=== PATIENT | female | born 1965 | race American Indian/Alaskan Native ===

== ENCOUNTER 2021-10-17 12:39 | Emergency (ER) | payer SELFPAY ==
[2021-10-17] MEDS ORDERED: hydrALAZINE 25 MG TAB PO ONE (21:17)
--- NOTE | 2021-10-17 21:59 | Emergency Department Report ---
ED General Adult HPI - General Chief complaint: High BP Stated complaint: HEADACHE /DIZZINESS/ARM PAIN Time Seen by Provider: 10/17/21 21:48 Source: patient Mode of arrival: Ambulatory Limitations: No Limitations - History of Present Illness Initial comments: Patient 56-year-old female with history of hypertension, diabetes, hyperlipidemia, obesity, arthralgia, diabetic neuropathy. Who presents for headache dizziness and arm pain for 3 days. Patient states been out of BP medications for the past 2 weeks. Patient advises symptoms are exacerbated by activity and movement. Symptoms are relieved by nothing tried. No fevers no chills no productive cough no nausea or vomiting no diaphoresis. - Related Data Previous Rx's Medication Instructions Recorded Last Taken Type Empagliflozin [Jardiance] 10 mg PO DAILY #30 tab 10/18/21 Unknown Rx Etodolac 400 mg PO DAILY #30 tab 10/18/21 Unknown Rx Gabapentin 300 mg PO BID #30 cap 10/18/21 Unknown Rx Glimepiride [Amaryl] 2 mg PO DAILY #30 tab 10/18/21 Unknown Rx Losartan [Cozaar] 50 mg PO QDAY #30 tablet 10/18/21 Unknown Rx Metoprolol [Lopressor TAB] 25 mg PO BID #60 tablet 10/18/21 Unknown Rx Simvastatin 10 mg PO DAILY #30 tab 10/18/21 Unknown Rx hydroCHLOROthiazide [Hctz] 12.5 mg PO DAILY #30 cap 10/18/21 Unknown Rx methocarbamoL [Methocarbamol] 500 mg PO BID PRN #30 tab 10/18/21 Unknown Rx Allergies Allergy/AdvReac Type Severity Reaction Status Date / Time No Known Allergies Allergy Unverified 10/17/21 12:48 ED Review of Systems ROS: Stated complaint: HEADACHE /DIZZINESS/ARM PAIN Other details as noted in HPI Constitutional: denies: chills, fever Eyes: denies: eye pain, eye discharge, vision change ENT: denies: ear pain, throat pain Respiratory: denies: cough, shortness of breath, wheezing Cardiovascular: denies: chest pain, palpitations Endocrine: no symptoms reported Gastrointestinal: denies: abdominal pain, nausea, vomiting, diarrhea Genitourinary: denies: urgency, dysuria, discharge Musculoskeletal: other (Left arm pain). denies: back pain, joint swelling, arthralgia Skin: denies: rash, lesions Neurological: headache, vertigo Psychiatric: denies: anxiety, depression Hematological/Lymphatic: as per HPI ED Past Medical Hx - Medications Home Medications: Home Medications Medication Instructions Recorded Confirmed Last Taken Type Empagliflozin [Jardiance] 10 mg PO DAILY #30 tab 10/18/21 Unknown Rx Etodolac 400 mg PO DAILY #30 tab 10/18/21 Unknown Rx Gabapentin 300 mg PO BID #30 cap 10/18/21 Unknown Rx Glimepiride [Amaryl] 2 mg PO DAILY #30 tab 10/18/21 Unknown Rx Losartan [Cozaar] 50 mg PO QDAY #30 tablet 10/18/21 Unknown Rx Metoprolol [Lopressor TAB] 25 mg PO BID #60 tablet 10/18/21 Unknown Rx Simvastatin 10 mg PO DAILY #30 tab 10/18/21 Unknown Rx hydroCHLOROthiazide [Hctz] 12.5 mg PO DAILY #30 cap 10/18/21 Unknown Rx methocarbamoL [Methocarbamol] 500 mg PO BID PRN #30 tab 10/18/21 Unknown Rx ED Physical Exam - General Limitations: No Limitations General appearance: alert, in no apparent distress - Head Head exam: Present: normocephalic, normal inspection - Eye Eye exam: Present: PERRL, EOMI Pupils: Present: normal accommodation - ENT ENT exam: Present: normal orophraynx, mucous membranes moist - Neck Neck exam: Present: normal inspection, full ROM. Absent: tenderness, lymphadenopathy, thyromegaly - Respiratory Respiratory exam: Present: normal lung sounds bilaterally. Absent: respiratory distress, wheezes, stridor, chest wall tenderness - Cardiovascular Cardiovascular Exam: Present: regular rate, normal rhythm, normal heart sounds. Absent: systolic murmur, diastolic murmur, rubs, gallop - GI/Abdominal GI/Abdominal exam: Present: soft, normal bowel sounds. Absent: distended, tenderness - Rectal Rectal exam: Present: deferred - Extremities Exam Extremities exam: Present: normal inspection, full ROM, normal capillary refill. Absent: tenderness, pedal edema - Expanded Upper Extremity Exam Left Shoulder Exam: Present: full ROM. Absent: tenderness Upper Arm exam: Present: full ROM. Absent: tenderness Elbow exam: Present: full ROM. Absent: tenderness Forearm Wrist exam: Present: full ROM. Absent: tenderness Hand Wrist exam: Present: full ROM. Absent: tenderness Neuro motor exam: Present: wrist extension intact, thumb opposition intact, thumb IP flexion intact, thumb adduction intact, fingers 2-5 abduction intact Neurosensory exam: Present: radial nerve intact Vascular: Present: normal capillary refill - Back Exam Back exam: Present: normal inspection, full ROM. Absent: CVA tenderness (R), CVA tenderness (L) - Neurological Exam Neurological exam: Present: alert, oriented X3, CN II-XII intact, normal gait, reflexes normal. Absent: motor sensory deficit - Expanded Neurological Exam Expanded Patient oriented to: Present: person, place, time Speech: Present: fluid speech Motor strength exam: RUE: 5, LUE: 5, RLE: 5, LLE: 5 Best Eye Response ([place]): (4) open spontaneously Best Motor Response ([place]): (6) obeys commands Best Verbal Response ([place]): (5) oriented [place] Total: 15 - Psychiatric Psychiatric exam: Present: normal affect, normal mood - Skin Skin exam: Present: warm, dry, intact, normal color. Absent: rash ED Course Vital Signs 10/17/21 10/17/21 10/17/21 12:46 21:45 23:47 Temperature 98.1 F Pulse Rate 83 72 88 Respiratory 20 Rate Blood Pressure 173/101 184/97 Blood Pressure 215/109 [Right] O2 Sat by Pulse 100 Oximetry ED Medical Decision Making - Lab Data Result diagrams: 10/17/21 21:56 10/17/21 23:13 Labs 10/17/21 10/17/21 10/17/21 21:56 21:56 23:13 WBC 6.7 RBC 6.12 H Hgb 15.2 H Hct 46.7 H MCV 76 L MCH 25 L MCHC 33 RDW 14.9 Plt Count 259 Lymph % (Auto) 25.0 Hardy % (Auto) 5.0 Eos % (Auto) 1.6 Baso % (Auto) 0.8 Lymph # (Auto) 1.7 Hardy # (Auto) 0.3 Eos # (Auto) 0.1 Baso # (Auto) 0.1 Seg Neutrophils % 67.6 Seg Neutrophils # 4.5 Sodium 140 Potassium 3.7 Chloride 101.1 Carbon Dioxide 25 Anion Gap 18 BUN 18 H Creatinine 1.2 Estimated GFR 46 BUN/Creatinine Ratio 15 Glucose 148 H Calcium 11.1 H Total Bilirubin 0.90 AST 15 ALT 21 Alkaline Phosphatase 84 Troponin T < 0.010 < 0.010 Total Protein 8.1 Albumin 4.9 Albumin/Globulin Ratio 1.5 - EKG Data EKG shows normal: sinus rhythm, axis, QRS complexes, ST-T waves Rate: normal - EKG Data When compared to previous EKG there are: previous EKG unavailable Interpretation: other (Sinus rhythm with prolonged TX interval 0.[address] elevated [place] interpreted by ED attending.) - Radiology Data Radiology results: report reviewed, image reviewed CHEST 2 VIEWS INDICATION / CLINICAL INFORMATION: chest pain. COMPARISON: None available. FINDINGS: SUPPORT DEVICES: None. HEART / MEDIASTINUM: Heart size and mediastinal contour appear within normal limits. LUNGS / PLEURA: No significant pulmonary or pleural abnormality. No pne umothorax. BONES: No significant osseous abnormality. ADDITIONAL FINDINGS: No significant additional findings. IMPRESSION: 1. No active cardiopulmonary disease. Signer Name: Finn Petty II, MD Signed: 10/18/2021 12:04 AM Workstation Name: [id number] Transcribed By: MELODY Dictated By: FINN PETTY II, MD Electronically Authenticated By: FINN PETTY II, MD Signed Date/Time: 10/18/213 DD/ TD/TT: - Medical Decision Making Heart score is 1 SWATI score 0 chest x-ray no infiltrates no opacities, EKG sinus rhythm with prolonged TX interval at 0.216 , repeat calcium level after IV fluids, BP is improved with medications given in ED plan refill medications. Follow-up primary care doctor in 2 to 3 days. Return to emergency department should symptoms worsen. Patient verbalized agreement and understanding with discharge plan. Patient DC'd to home in stable condition. Critical care attestation.: If time is entered above; I have spent that time in minutes in the direct care of this critically ill patient, excluding procedure time. ED Disposition Clinical Impression: Hypertension Qualifiers: Hypertension type: primary hypertension Qualified Code(s): I10 - Essential (p rimary) hypertension Disposition: 01 HOME / SELF CARE / HOMELESS Is pt being admited?: No Does the pt Need Aspirin: No Condition: Stable Instructions: Managing Your Hypertension, Hypertension, Adult, Hypertension (ED) Additional Instructions: Take medications as prescribed, follow-up with your primary care doctor in 2 to 3 days. Return to emergency department should symptoms worsen. Prescriptions: Glimepiride [Amaryl] 2 mg PO DAILY #30 tab Losartan [Cozaar] 50 mg PO QDAY #30 tablet Etodolac 400 mg PO DAILY #30 tab Gabapentin 300 mg PO BID #30 cap hydroCHLOROthiazide [Hctz] 12.5 mg PO DAILY #30 cap Empagliflozin [Jardiance] 10 mg PO DAILY #30 tab Metoprolol [Lopressor TAB] 25 mg PO BID #60 tablet methocarbamoL [Methocarbamol] 500 mg PO BID PRN #30 tab PRN Reason: Muscle Spasm Simvastatin 10 mg PO DAILY #30 tab Referrals: REED DAVENPORT MD [Staff Physician] - 3-5 Days Forms: Work/School Release Form(ED) Time of Disposition: 01:39
[2021-10-17 22:06] LABS: Basophils # (Auto) 0.1 K/mm3 (0.0-0.1); Basophils % (Auto) 0.8 % (0.0-1.8); Eosinophils # (Auto) 0.1 K/mm3 (0.0-0.4); Eosinophils % (Auto) 1.6 % (0.0-4.3); Hematocrit 46.7 % (30.3-42.9); Hemoglobin 15.2 gm/dl (10.1-14.3); Lymphocytes # (Auto) 1.7 K/mm3 (1.2-5.4); Mean Corpuscular HGB Conc 33 % (30-34); Mean Corpuscular Volume 76 fl (79-97); Monocytes # (Auto) 0.3 K/mm3 (0.0-0.8); Platelet Count 259 K/mm3 (140-440); Red Blood Count 6.12 M/mm3 (3.65-5.03); Red Cell Distribution Width 14.9 % (13.2-15.2)
[2021-10-17 22:35] LABS: Alanine Aminotransferase 21 units/L (7-56); Albumin 4.9 g/dL (3.9-5); BUN/Creatinine Ratio 15; Blood Urea Nitrogen 18 mg/dL (7-17); Calcium 11.1 mg/dL (8.4-10.2); Hemolysis Index 4
[2021-10-17] MEDS ORDERED: SODIUM CHLORIDE 0.9% 1000 ML 1,000 ML IV ONE (23:07)
[2021-10-17] MEDS: METOPROLOL TARTRATE 50 MG TAB PO ONE ×2 (23:33→23:47)
--- NOTE | 2021-10-18 00:08 | XRay Report ---
CHEST 2 VIEWS INDICATION / CLINICAL INFORMATION: chest pain. COMPARISON: None available. FINDINGS: SUPPORT DEVICES: None. HEART / MEDIASTINUM: Heart size and mediastinal contour appear within normal limits. LUNGS / PLEURA: No significant pulmonary or pleural abnormality. No pneumothorax. BONES: No significant osseous abnormality. ADDITIONAL FINDINGS: No significant additional findings. IMPRESSION: 1. No active cardiopulmonary disease. Signer Name: Vitaly Petty II, MD Signed: 10/18/2021 12:04 AM Workstation Name: [id number]
[2021-10-18 06:29] VITALS: BP 167/86
--- NOTE | 2021-10-21 09:43 | Electrocardiograph Report ---
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
== END 2021-10-18 02:00 | disposition home or self-care (01) ==
LOC: ED 12:39
DX: I10 Essential (primary) hypertension (principal)
CPT/HCPCS: 36415; 71046; 80048; 80053; 84484; 85025; 93005; 96360; 99284; J7030